=== PATIENT | female | born 1970 | race Caucasian/White ===

== ENCOUNTER → 2017-01-08 | Outpatient (CLI) | payer BC ==
[~2017-01-08] MED LIST: AMIO200T42 PO; CLON-365 PO; ENOX100S5 SQ; ESCI20TA10 PO; FURO40TA6 PO; HYDR-3307 PO; LEVO5TAB20 PO; METO25TA2 PO; METO50TA4 PO; MULT-154 PO; POTA20TA14 PO; PREG50CA PO; RIVA20TA PO; ROSU10TA PO; SPIR25TA3 PO; TIZA4TAB PO; TRAZ50TA18 PO; WARF5TAB PO; WARF7.5T PO
== END | disposition home or self-care (01) ==
LOC: RAD 12:57
PROVIDERS: ATTEND Internal Medicine Cardiovascular Disease
DX: I26.99 Other pulmonary embolism without acute cor pulmonale (principal); I27.2 Other secondary pulmonary hypertension
CPT/HCPCS: 71010; 78582; A9540; A9558; 93306

== ENCOUNTER 2017-11-06 00:15 | Emergency (ER) | payer BC ==
[~2017-11-06] VITALS: Ht 167.6 cm; Wt 93.0 kg
[~2017-11-06 00:15] MED LIST changes: -LEVO5TAB20 PO; +LEVO5TAB29 PO
[2017-11-06 01:00] LABS: BASOPHILS # (AUTO) 0.07 x10^3/uL (0-0.1); BASOPHILS % (AUTO) 1 % (0-1); EOSINOPHILS # (AUTO) 0.38 x10^3/uL (0-0.4); EOSINOPHILS % (AUTO) 4 % (1-7); LYMPHOCYTES # (AUTO) 2.61 x10^3/uL (1-3.4); LYMPHOCYTES % (AUTO) 25 % (22-44); MD NO; MEAN CORPUSCULAR HEMOGLOBIN 30.8 pg (27.0-34.8); MEAN CORPUSCULAR HGB CONC 33.4 g/dL (32.4-35.8); MEAN CORPUSCULAR VOLUME 92.2 fL (80-100); MONOCYTES # (AUTO) 1.04 x10^3/uL (0.2-0.8); MONOCYTES % (AUTO) 10 % (2-9); NEUTROPHILS # (AUTO) 6.44 x10^3/uL (1.8-6.8); NEUTROPHILS % (AUTO) 61 % (42-75); PLATELET COUNT 307 x10^3/uL (130-400); RED BLOOD COUNT 4.23 x10^6/uL (3.82-5.3); RED CELL DISTRIBUTION WIDTH 14.2 % (9.6-15.2)
[2017-11-06] MEDS ORDERED: SODIUM CHLORIDE FLUSH 10ML SYR IVF ONE (01:00)
[2017-11-06] MEDS ORDERED: SODIUM CHLORIDE 0.9% 1,000ML IVBOLUS ONE (01:00)
[2017-11-06 01:10] LABS: INTERNATIONAL NORMALIZED RATIO 1.06 (0.93-1.1); PROTHROMBIN TIME 10.9 Seconds (9.6-11.5)
[2017-11-06 01:11] LABS: ALBUMIN 3.9 g/dL (3.4-5.0); ANION GAP 9 mmol/L (5-15); CALCIUM 8.7 mg/dL (8.5-10.1); CHLORIDE 108 mmol/L (98-107); CREATININE 0.89 mg/dL (0.55-1.02)
[2017-11-06] MEDS ORDERED: ACETAMINOPHEN 500 MG TABLET ONE (01:34)
[2017-11-06] MEDS ORDERED: ACETAMINOPHEN 325 MG TABLET PO ONE (02:00)
[2017-11-06 03:00] VITALS: BP 132/82
== END 2017-11-06 03:03 | disposition home or self-care (01) ==
LOC: ED 00:39
DX: N92.0 Excessive and frequent menstruation with regular cycle (principal); N92.1 Excessive and frequent menstruation with irregular cycle; F32.9 Major depressive disorder, single episode, unspecified; F41.9 Anxiety disorder, unspecified; I10 Essential (primary) hypertension
CPT/HCPCS: 36415; 76830; 80048; 82040; 84703; 85025; 85610; 85730; 99285

== ENCOUNTER 2017-11-13 07:53 | Day surgery (SDC) | payer BC ==
[2017-11-12 13:09] LABS: HCG UR SG 1.014 (1.003-1.030); MICROSCOPIC NOT IND
[2017-11-12 13:10] LABS: CULTURE INDICATED? NO
[~2017-11-13] VITALS: Ht 167.6 cm; Wt 92.0 kg
[~2017-11-13 07:53] MED LIST changes: +BUPR150T73 PO; +FURO-93 PO; +POTA10CA PO
[2017-11-13] MEDS ORDERED: LACTATED RINGERS 1,000 ML IV SCH (08:04)
[2017-11-13 08:26] VITALS: BP 108/75
[2017-11-13] MEDS ORDERED: FENTANYL PF 250 MCG/5ML ONE (08:50)
[2017-11-13] MEDS ORDERED: MIDAZOLAM 1 MG/ML, 2ML ONE (08:50)
[2017-11-13] MEDS ORDERED: PROPOFOL 10 MG/ML, 20ML ONE (08:51)
[2017-11-13 08:57] LABS: BASOPHILS # (AUTO) 0.04 x10^3/uL (0-0.1); BASOPHILS % (AUTO) 1 % (0-1); EOSINOPHILS # (AUTO) 0.39 x10^3/uL (0-0.4); EOSINOPHILS % (AUTO) 6 % (1-7); LYMPHOCYTES # (AUTO) 1.96 x10^3/uL (1-3.4); LYMPHOCYTES % (AUTO) 29 % (22-44); MD NO; MEAN CORPUSCULAR HEMOGLOBIN 31.1 pg (27.0-34.8); MEAN CORPUSCULAR HGB CONC 33.7 g/dL (32.4-35.8); MEAN CORPUSCULAR VOLUME 92.2 fL (80-100); MEAN PLATELET VOLUME 8.4 fL (7.4-10.4); MONOCYTES # (AUTO) 0.87 x10^3/uL (0.2-0.8); MONOCYTES % (AUTO) 13 % (2-9); NEUTROPHILS # (AUTO) 3.47 x10^3/uL (1.8-6.8); NEUTROPHILS % (AUTO) 52 % (42-75); PLATELET COUNT 296 x10^3/uL (130-400); RED BLOOD COUNT 3.85 x10^6/uL (3.82-5.3); RED CELL DISTRIBUTION WIDTH 14.1 % (9.6-15.2)
[2017-11-13] MEDS ORDERED: BUPIVACAINE/PF 0.25% ONE (09:31)
[2017-11-13] MEDS ORDERED: FENTANYL PF 100 MCG/2ML IV PRN (10:00)
[2017-11-13] MEDS ORDERED: LABETALOL 5MG/ML, 20ML IV PRN (10:00)
[2017-11-13] MEDS ORDERED: PROMETHAZINE 25 MG/ML, 1ML IV PRN (10:00)
[2017-11-13] MEDS ORDERED: HYDROmorphone 1 MG/ML, 1ML IV PRN (10:00)
[2017-11-13] MEDS ORDERED: hydrALAzine 20 MG/ML, 1ML IV PRN (10:00)
[2017-11-13] MEDS ORDERED: ACETAMINOPHEN 325 MG TABLET PO PRN (10:00)
[2017-11-13] MEDS ORDERED: MEPERIDINE/PF 25MG/0.5ML IVPush PRN (10:00)
[2017-11-13] MEDS ORDERED: ONDANSETRON 2MG/ML, 2ML IVPush PRN (10:00)
[2017-11-13] MEDS ORDERED: CEFAZOLIN 1,000 MG ONE (10:09)
[2017-11-13] MEDS ORDERED: ONDANSETRON 2MG/ML, 2ML ONE (10:22)
[2017-11-13] MEDS ORDERED: DEXAMETHASONE 4 MG/ML, 1ML ONE ×2 (10:22)
[2017-11-13] MEDS ORDERED: SILVER NITRATE STICK TP ONE (10:40)
[2017-11-13] MEDS: OXYcodone 5 MG/5 ML ORAL.SOL UDC PO PRN ×2 (11:10→12:59)
== END 2017-11-13 13:40 ==
LOC: OUT 07:53
PROVIDERS: ATTEND Obstetrics & Gynecology
DX: N92.0 Excessive and frequent menstruation with regular cycle (principal); G47.33 Obstructive sleep apnea (adult) (pediatric); I27.20 Pulmonary hypertension, unspecified; I10 Essential (primary) hypertension; F32.9 Major depressive disorder, single episode, unspecified; Z86.711 Personal history of pulmonary embolism; Z98.890 Other specified postprocedural states
CPT/HCPCS: 36415; 58563; 81003; 81025; 85025; 93005; J0690; J1100; J2250; J2405; J2704; J3010; J3490; J7120

== ENCOUNTER → 2018-07-08 | Outpatient (CLI) | payer BC ==
[~2018-07-08] MED LIST changes: -CLON-365 PO; +CLON1TAB11 PO; -SPIR25TA3 PO; +SPIR25TA5 PO; +TRAZ-136 PO; -TRAZ50TA18 PO
== END | disposition home or self-care (01) ==
LOC: RAD 14:12
PROVIDERS: ATTEND Internal Medicine Cardiovascular Disease
DX: I08.1 Rheumatic disorders of both mitral and tricuspid valves (principal); I26.09 Other pulmonary embolism with acute cor pulmonale; I27.29 Other secondary pulmonary hypertension; I10 Essential (primary) hypertension; E78.5 Hyperlipidemia, unspecified
CPT/HCPCS: 71045; 78582; 93306; A9540; A9558

== ENCOUNTER 2018-07-12 21:29 | Emergency (ER) | payer BC ==
[~2018-07-12] VITALS: Ht 167.6 cm; Wt 103.5 kg
[2018-07-12] MEDS ORDERED: HYDROcodone/APAP 10/325 MG TABLET PO ONE (22:00)
[2018-07-12] MEDS ORDERED: LIDOCAINE-MPF 1%, 5ML ONE (22:00)
[2018-07-12] MEDS ORDERED: LIDOCAINE-MPF 1%, 5ML INFIL ONE (22:00)
[2018-07-12] MEDS ORDERED: DIPH,PERTUSS(ACELL),TET VAC/PF 0.5 ML IM-VACC ONE ×2 (22:00→22:49)
[2018-07-12] MEDS ORDERED: LIDOCAINE 1%-EPI 1:100K, 20ML ONE (22:44)
[2018-07-12] MEDS ORDERED: HYDROcodone/APAP 10/325 MG TABLET ONE (22:49)
[2018-07-13 00:04] VITALS: BP 107/68
== END 2018-07-13 00:06 | disposition home or self-care (01) ==
LOC: ED 22:00
DX: S02.2XXA Fracture of nasal bones, initial encounter for closed fracture (principal); S01.511A Laceration without foreign body of lip, initial encounter; I48.92 Unspecified atrial flutter; I10 Essential (primary) hypertension; W01.0XXA Fall on same level from slipping, tripping and stumbling without subsequent striking against object, initial encounter; Y93.89 Activity, other specified; Y92.009 Unspecified place in unspecified non-institutional (private) residence as the place of occurrence of the external cause; Y99.8 Other external cause status
CPT/HCPCS: 12051; 13131; 70450; 70486; 90471; 90715; 93005

== ENCOUNTER → 2020-08-13 | Outpatient (CLI) | payer BC ==
[~2020-08-13] MED LIST changes: +HYDR-3246 PO; -HYDR-3307 PO; -ROSU10TA PO; +ROSU10TA2 PO; -TIZA4TAB PO; +TIZA4TAB2 PO; -TRAZ-136 PO; +TRAZ50TA66 PO; -WARF5TAB PO; +WARF5TAB2 PO
== END | disposition home or self-care (01) ==
LOC: CVU 13:03
PROVIDERS: ATTEND Internal Medicine Cardiovascular Disease
DX: I08.2 Rheumatic disorders of both aortic and tricuspid valves (principal); I10 Essential (primary) hypertension
CPT/HCPCS: 93306

== ENCOUNTER 2021-03-27 14:51 | Emergency (ER) | payer BC ==
[~2021-03-27] VITALS: Ht 167.6 cm; Wt 112.4 kg
[~2021-03-27 14:51] MED LIST changes: -HYDR-3246 PO; +HYDR-3248 PO
[2021-03-27 14:56] VITALS: BP 154/94
[2021-03-27 16:09] LABS: BASOPHILS % (AUTO) 1 % (0-1); EOSINOPHILS % (AUTO) 7 % (1-7); LYMPHOCYTES % (AUTO) 44 % (22-44); MEAN CORPUSCULAR HEMOGLOBIN 29.7 pg (27.0-34.8); MEAN PLATELET VOLUME 7.8 fL (7.4-10.4); MONOCYTES % (AUTO) 11 % (2-9); NEUTROPHILS % (AUTO) 37 % (42-75); PLATELET COUNT 313 x10^3/uL (130-400); RED BLOOD COUNT 4.21 x10^6/uL (3.82-5.3); RED CELL DISTRIBUTION WIDTH 13.4 % (9.6-15.2)
--- NOTE | 2021-03-27 16:42 | NUR ---
ERPA AT BEDSIDE TO UPDATE PT ON POC.
== END 2021-03-27 17:19 | disposition home or self-care (01) ==
LOC: ED 17:08
DX: S60.222A Contusion of left hand, initial encounter (principal); L03.115 Cellulitis of right lower limb; I10 Essential (primary) hypertension; Z86.711 Personal history of pulmonary embolism; X58.XXXA Exposure to other specified factors, initial encounter; Y93.89 Activity, other specified; Y92.89 Other specified places as the place of occurrence of the external cause; Y99.8 Other external cause status
CPT/HCPCS: 36415; 85025; 99283